=== PATIENT | male | born 1980 | race Caucasian/White ===

== ENCOUNTER 2022-01-06 10:18 | Day surgery (SDC) | payer BC ==
[~2022-01-06 10:18] MED LIST: Lactated Ringers 1,000 ML IV SCH
[2022-01-06] MEDS ORDERED: propofoL 50 ML ONE (12:03)
[2022-01-06] MEDS ORDERED: fentaNYL 100 MCG/2 ML SDV ONE (12:26)
[2022-01-06] MEDS ORDERED: Lidocaine 2% 5 ML SDV ONE (12:26)
== END 2022-01-06 14:15 | disposition home or self-care (01) ==
LOC: MW.SDS 10:18
PROVIDERS: ATTEND Surgery
DX: K52.832 Lymphocytic colitis (principal); K31.7 Polyp of stomach and duodenum; K29.50 Unspecified chronic gastritis without bleeding; K21.9 Gastro-esophageal reflux disease without esophagitis; Z79.899 Other long term (current) drug therapy; Z87.11 Personal history of peptic ulcer disease
CPT/HCPCS: 43239; 45380; J2704; J3010; J7120; 00813